=== PATIENT | male | born 1980 | race Caucasian/White ===

== ENCOUNTER 2017-03-09 12:35 | Emergency (ER) | payer OTHER ==
[~2017-03-09] VITALS: Ht 170.2 cm; Wt 97.5 kg
[~2017-03-09 12:35] MED LIST: BACTRIM DS TAB1 EACH PO
[2017-03-09] MEDS ORDERED: MULTI VITAMIN1 EACH PO (12:41)
== END 2017-03-09 12:47 | disposition home or self-care (01) ==
LOC: ED 12:35
DX: S91.342A Puncture wound with foreign body, left foot, initial encounter (principal); Z00.8 Encounter for other general examination; W22.8XXA Striking against or struck by other objects, initial encounter; Y99.0 Civilian activity done for income or pay

== ENCOUNTER 2017-03-09 13:40 | Emergency (ER) | payer OTHER ==
[~2017-03-09] VITALS: Ht 170.2 cm; Wt 97.5 kg
[~2017-03-09 13:40] MED LIST changes: +MULTI VITAMIN1 EACH PO
== END 2017-03-09 14:22 | disposition home or self-care (01) ==
LOC: ED 13:40
DX: S91.332A Puncture wound without foreign body, left foot, initial encounter (principal); Z79.899 Other long term (current) drug therapy; W22.8XXA Striking against or struck by other objects, initial encounter; Y99.0 Civilian activity done for income or pay
CPT/HCPCS: 90471; 90715; 99282

== ENCOUNTER 2021-08-29 05:30 | Day surgery (SDC) | payer BC ==
[~2021-08-29] VITALS: Ht 170.2 cm; Wt 108.1 kg
--- NOTE | ~2021-08-29 | OR ---
[facility] [address], [place] [address] [place] DATE OF OPERATION: 08/29/2021 SURGEON: Nemo Che MD PREOPERATIVE DIAGNOSES: Deviated nasal septum, turbinate hypertrophy, and nasal obstruction. POSTOPERATIVE DIAGNOSES: Deviated nasal septum, turbinate hypertrophy, and nasal obstruction. PROCEDURES: 1. Nasal septoplasty, 13020. 2. Bilateral submucous resection of inferior turbinates, 58491-10. INDICATIONS: This 41-year-old gentleman has gradually lost his airway over the last few years. He has signs and symptoms of chronic rhinitis. Examination in the office showed a high septal deviation to the left side, which was obstructive of air flow into the middle meatus and hypertrophied turbinates. The patient has tried nasal decongestants and nasal steroid sprays without satisfaction and so presented to the office. The examination was consistent with nasal obstruction and because of medical failure to treat that, surgery was felt to be curative for this problem. PROCEDURE IN DETAIL: The patient was placed in the supine position, had an orotracheal intubation, was placed under general anesthesia. The patient had some Afrin spray put into his nose prior to the surgery and rhinoscopy showed that there was also some polypoid degeneration of the posterior and some of the inferior turbinates. The nasal septum was injected with about 3 mL of 0.5% Marcaine 1:200,000 epinephrine. Then, an incision was made at the junction of the septum with the floor on the left side and a flap was elevated in the submucoperichondrial plane. This elevation was carried up on to the bone and up into the deviated part of the bone suspected nasal fracture at young age was seen by the rippling of the bone. Elevation of the periosteum was done on both sides and then Caraballo scissors were used to cut the heavy deviation pieces of bone and from the inferior aspect of the vomer and the nasal spurs inferiorly. An osteotome and mallet were used to remove the spur and deviated inferior portion of the septal deflection and then after removing those offended pieces of bone, the cartilage being relatively straight allowed for a maximal airway on both sides as far as the septum would go. The flaps were then based down after putting another milliliter of Marcaine into the envelope after sucking out all the blood. 4-0 gut was used to base it together PATIENT NAME: ROD TROY OPERATIVE REPORT DATE OF : 76 REPORT #: [id number] PHYSICIAN: NEMO CHE MD PCP: GLENROY PALUMBO MD REPORT IS CONFIDENTIAL AND NOT TO BE RELEASED WITHOUT AUTHORIZATION [facility] [address], [place] [address] Draft and 4-0 chromic used to close the incision inferiorly. The turbinates were then injected with a milliliter of Marcaine solution on either side. Stab incision was made anteriorly, then elevating the mucoperiosteum off the turbinate bone anteriorly, the buttress and main part of the turbinate bone was avulsed, broken in little pieces with Lia forceps and removed from the envelope. More posteriorly, the curette was used to curette the bone into small pieces, removing it from the airway. Suction cautery setting at 35 was done to lightly cauterize the polypoid posterior aspect of the inferior turbinate rather than resect it because there was significant chance of postoperative hemorrhage. After that was done, the patient was awakened, extubated, and sent to recovery in good condition. Estimated Blood Loss was only about 10 mL. No packing required. The patient did well. No complications. Nemo Che MD [facility] /[id number] Copies: ~ PATIENT NAME: ROD TROY OPERATIVE REPORT DATE OF : 76 REPORT #: [id number] PHYSICIAN: NEMO CHE MD PCP: GLENROY PALUMBO MD REPORT IS CONFIDENTIAL AND NOT TO BE RELEASED WITHOUT AUTHORIZATION
--- NOTE | 2021-08-29 08:43 | NUR ---
08/29/21 0843 Sheets,Connie 0832 PT ARRIVED TO PACU COUGHING AND ON 10L VIA MASK, LARGE AMOUNT OF SNORING NOTED. VSS. 0836 O2 REMOVED PT GRABBING AT HIS FACE AND PT REORIENTED TO PACU. 0838 O2 DECREASED TO 89% AND RN ENCOURAGED DEEP BREATHING. O2 INCREASED TO MID 90S. 0840 PT DENIES PAIN AND NAUSEA.
--- NOTE | 2021-08-29 09:57 | NUR ---
PT ALERT, ORIENTED AND SEEMS PREPARED. ALL QUESTIONS ASKED ANSWERED. PT HAS RIDE ARRANGED FOR DC. GAVE BLESSING, WILL FOLLOW
--- NOTE | 2021-08-29 10:37 | NUR ---
STEADY ON FEET WITH ONE PERSON STAND BY ASSIST FOR AMBULATION TO BR. DENIES NAUSEA. REPORTS MILD 2/10 PAIN AND REFUSES OFFER OF PRN MEDICATION FOR PAIN AT THIS POINT. REVIEWED DISCHARGE INSTRUCTIONS WITH PT AND SO AT BEDSIDE.
== END 2021-08-29 10:05 | disposition home or self-care (01) ==
LOC: DS 05:30
PROVIDERS: ATTEND Otolaryngology
PROC: 09SM0ZZ Reposition Nasal Septum, Open Approach (ICD-10-PCS; principal; 2021-08-29 07:30)
DX: J34.2 Deviated nasal septum (principal); J34.3 Hypertrophy of nasal turbinates; J34.89 Other specified disorders of nose and nasal sinuses
CPT/HCPCS: 00160; J0330; J1100; J2001; J2250; J2405; J2704; J7121